=== PATIENT | female | born 2000 | race Caucasian/White ===

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

== ENCOUNTER → 2020-02-06 | Outpatient (CLI) | payer OTHER ==
[~2020-02-06] MED LIST: MAPA500T2 PO; NITR100C2 PO; PRENTAB9 PO
--- NOTE | 2020-02-06 15:11 | REP ---
REASON: anatomy. PRIORS: None. Multiple ultrasonographic images of the gravid uterus show a living intrauterine gestation in the cephalic presentation. Doppler interrogation of the heart shows a heart rate of 147 beats per minute. The placenta is anterior and not low lying. The subjective amniotic fluid volume is within normals limits. The cervix measures 4.2 cm in length and is closed. Evaluation of the maternal adnexal spaces show no abnormalities. BPD 5 cm = 21 weeks 0 days HC 19.4 cm = 19 weeks 4 days AC 16.3 cm = 21 weeks 3 days FL 3.7 cm = 21 weeks 6 days Estimated weight 436 grams, which is at the 42nd percentile for a 93-fzic-0-day gestational age. anatomical structures seen as unremarkable are as follows: Thalami, cavum septum pellucidum, cerebella, cisterna magna, cerebral ventricles, upper lip, ventricular outflow tracts, stomach, kidneys, spine, and upper and lower extremities. Structure suboptimally visualized as follows: Four-chamber heart, three vessel umbilical cord, urinary bladder, and cord insertion. IMPRESSION: Single living intrauterine gestation as described above with an estimated gestational age of 21 weeks 3 days via composite criteria and estimated date of delivery of 08/15/2019 by today's exam. No anomalies were detected, however, recommend a followup examination to better visualize those anatomical structures not well seen today as described above.
== END ==
LOC: M WHC 09:54
PROVIDERS: ATTEND Advanced Practice Midwife
DX: Z34.82 Encounter for supervision of other normal pregnancy, second trimester (principal); Z3A.21 21 weeks gestation of pregnancy

== ENCOUNTER → 2020-03-12 | Outpatient (REF) | payer OTHER ==
[2020-04-28 18:38] LABS: HEMATOCRIT 30.1 % (36.0-47.0); HEMOGLOBIN 9.6 g/dl (12.0-15.5); MEAN CORPUSCULAR HEMOGLOBIN 30.1 pg (27.0-33.0); MEAN CORPUSCULAR HGB CONC 31.9 g/dl (32.0-36.5); MEAN CORPUSCULAR VOLUME 94.4 fl (80.0-96.0); RED BLOOD COUNT 3.19 10^6/uL (4.00-5.40); WHITE BLOOD COUNT 9.1 10^3/uL (4.0-10.0)
[2020-04-28 18:39] LABS: PLATELET COUNT, AUTOMATED 196 10^3/uL (150-450)
== END ==
LOC: M SFHCWAGY 17:12
PROVIDERS: ATTEND Obstetrics & Gynecology
DX: Z34.00 Encounter for supervision of normal first pregnancy, unspecified trimester (principal)

== ENCOUNTER 2020-05-02 15:12 | Outpatient (CLI) | payer OTHER ==
[~2020-05-02] VITALS: Ht 167.6 cm; Wt 74.4 kg
== END 2020-05-02 17:50 | disposition home or self-care (01) ==
LOC: M LDO 15:12
PROVIDERS: ATTEND Advanced Practice Midwife
DX: O26.893 Other specified pregnancy related conditions, third trimester (principal); Z3A.34 34 weeks gestation of pregnancy
CPT/HCPCS: 59025; 81001; 87086; G0378; G0463

== ENCOUNTER → 2020-05-15 | Outpatient (REF) | payer OTHER | LOC: M SFHCWAGY 09:52 | PROVIDERS: ATTEND Obstetrics & Gynecology | DX: O99.343 Other mental disorders complicating pregnancy, third trimester (principal) | CPT/HCPCS: 87081; G0463 ==

== ENCOUNTER 2020-05-25 04:37 | Outpatient (CLI) | payer OTHER ==
[~2020-05-25] VITALS: Ht 165.1 cm; Wt 75.1 kg
[2020-05-25 04:56] VITALS: BP 109/58
[2020-05-25] MEDS ORDERED: LR 1,000 ML IV ONE (05:15)
[2020-05-25 06:53] VITALS: BP 108/55
--- NOTE | 2020-05-25 07:13 | IPNPDOC ---
Obstetrical Progress Note Date of Service May 25, 2020 Subjective 20yo at 37wks presents with pelvic pressure and abd pain. She reports active movement. No vaginal bleeding, LOF, dysuria or n/v/f/c. O: vss, AF Cat 1 tracing with ctx. Gen: well appearing, NAD cx: 1-2/50/-2 abd: soft, gravid, ntttp UA: c/w UTI A/P: 20yo with acute cystitis -macrobid 100mg BID -fever lori pain precautions -Labor precautions and FKCs Objective Vital Signs Date Time Temp Pulse Resp B/P (MAP) Pulse Ox O2 Delivery O2 Flow Rate FiO2 05/25/20 06:53 97.1 71 18 108/55 (72) Room Air Assessment Variability: Moderate Heart Rate Tracing: Category I Tocometer Contractions: Yes Sterile Vaginal Examination Dilation: 1cm Effacement (%): 50% Station: -2 Postion/Presentation: Cephalic presentation Assessment and Plan Age: 20 : 2 Livin Status: Reassuring Additional Comments UA consistent with UTI. Unable to gain IV access. Plan to give Macrobid 100mg BID IRENE SMALLS MD. May 25, 2020 07:13
[2020-05-25] MEDS ORDERED: NITROFURANTOIN (MACROBID) 100 MG CAP PO ONE (07:15)
[2020-05-25] MEDS ORDERED: NITR100C2 PO (07:41)
== END 2020-05-25 07:27 | disposition home or self-care (01) ==
LOC: M LDO 04:37
PROVIDERS: ATTEND Obstetrics & Gynecology
DX: O23.43 Unspecified infection of urinary tract in pregnancy, third trimester (principal); Z3A.37 37 weeks gestation of pregnancy
CPT/HCPCS: 59025; 81001; G0378; G0463

== ENCOUNTER 2020-05-30 09:48 | Outpatient (CLI) | payer OTHER ==
[~2020-05-30] VITALS: Ht 167.6 cm; Wt 76.9 kg
[~2020-05-30 09:48] MED LIST changes: -MAPA500T2 PO; -PRENTAB9 PO
[2020-05-30 10:08] VITALS: BP 113/63
[2020-05-30] MEDS ORDERED: PRENTAB9 PO (10:37)
[2020-05-30] MEDS ORDERED: MAPA500T2 PO (10:37)
[2020-05-30 11:54] VITALS: BP 118/69
[2020-05-30 13:43] VITALS: BP 120/71
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
== END 2020-05-30 17:50 | disposition home or self-care (01) ==
LOC: M LDO 09:48
PROVIDERS: ATTEND Advanced Practice Midwife
DX: O47.03 False labor before 37 completed weeks of gestation, third trimester (principal); Z87.891 Personal history of nicotine dependence; Z91.410 Personal history of adult physical and sexual abuse; Z3A.38 38 weeks gestation of pregnancy
CPT/HCPCS: 59025; G0378; G0463

== ENCOUNTER 2020-06-07 08:41 | Inpatient (IN) | payer OTHER ==
[~2020-06-07] VITALS: Ht 167.6 cm; Wt 76.6 kg
[2020-06-07] VITALS (39 sets, daily range): BP systolic 79–134; BP diastolic 43–85
[~2020-06-07 08:41] MED LIST changes: +MAPA500T2 PO; +PRENTAB9 PO
[2020-06-07] MEDS ORDERED: LACTATED RINGER'S 1000 ML IV STA (10:08)
[2020-06-07] MEDS ORDERED: OXYTOCIN DRIP 30 UNITS in IV 1 EA IV SCH (10:30)
[2020-06-07] MEDS: LR 1,000 ML IV SCH ×2 (10:43→16:58)
[2020-06-07 10:45] LABS: HEMATOCRIT 27.7 % (36.0-47.0); HEMOGLOBIN 8.2 g/dl (12.0-15.5); MEAN CORPUSCULAR HEMOGLOBIN 24.3 pg (27.0-33.0); MEAN CORPUSCULAR HGB CONC 29.6 g/dl (32.0-36.5); PLATELET COUNT, AUTOMATED 198 10^3/uL (150-450); RED BLOOD COUNT 3.38 10^6/uL (4.00-5.40); WHITE BLOOD COUNT 8.9 10^3/uL (4.0-10.0)
--- NOTE | 2020-06-07 11:26 | HPEPDOC ---
Obstetrical History & Physical General Date of Admission Jun 07, 2020 at 08:41 History of Present Illness 20yo at 39+1 weeks gestation. Presents for a scheduled, elective non- medically indicated induction of labor. She has no complaints this morning. She's feeling mild to moderately uncomfortable uterine contractions, but denies frequency/intensity, LOF, or VB. Reports regular, frequent movement. Chief Complaint: Induction of labor Age: 20 : 5 Term: 1 Pre-term: 0 Abortions: 3 Livin Care Care: Good Care Dating Final EDC: Jun 13, 2020 Final EDC by: LMP, 1st trimester (US) EGA at Admission: 39 (+1) Antepartum Course Diagnos(e)s 1. Anemia; taking Fe supplement 2. History of labor in previous , but delivered at term 3. Recurrent loss; SAB x 3 (RPL workup info not available) 4. Depression/anxiety; past suicide attempt. Formerly on Prozac. Followed by [facility] department 5. Former smoker Past Medical History Past Obstetrical History #1: Date of Delivery: Sep 24, 2015 Gestation: 40 Type of Delivery: Spontaneous Vaginal Del. Sex of : Female Complications: Yes ( labor; stopped with Procardia, delivered at term. anemia) Past Obstetrical History #2: Complications: No (SAB) Past Obstetrical History #3: Complications: No (SAB) Past Obstetrical History #4: Complications: No (SAB) DESK ASSISTANT History: No pertinent history Past Medical History Medical History Depression/Anxiety Anemia Surgical History: Denies/None Family History Significant Family History: Asthma, Cancer, Heart disease, Hypertension, Other (Psych) Social History Marital Status: Family situation: Spouse/partner home Psychosocial History: Anxiety, Gera SI and HI * Smoker: non-smoker Alcohol: Denies Drugs: denies Abuse Violence Screening Have you been hit/kicked/slapp: No Allergies Coded Allergies: tea tree (Verified Allergy, Mild, states bumps on scalp with shampoo with tea tree oil, 05/30/20) Medications Scheduled No.137/Iron/Folic Acd ( Vitamin Tablet) 1 Each Tablet, 1 TAB PO DAILY Physical Examination Physical Examination GENERAL: Alert and oriented times three. BREAST: . ABDOMEN: Gravid and non-tender to touch. FETUS: Is vertex (VTX) by sterile vaginal examination (SVE), fetus is vertex (VTX) by Jas. HEART RATE: Regular rate and rhythm. LUNGS: Clear to auscultation (CTA). EXTREMITIES: No edema. No clonus. Deep tendon reflexes (DTRs) + . Vital Signs/I&O Vital Signs Date Time Temp Pulse Resp B/P (MAP) Pulse Ox O2 Delivery O2 Flow Rate FiO2 06/07/20 10:19 97.4 65 18 129/63 (85) Laboratory Data 24H LABS Laboratory Tests 2 06/07/20 08:47: Serology Scanned Report Hepatitis B Testing 06/07/20 10:28: Nucleated Red Blood Cells % (auto) 0.0 CBC/BMP Laboratory Tests 06/07/20 10:28 Pertinent Laboratoy Data Blood Type: A- RBC Antibody Screen: Negative HIV: Negative Hepatitis B: Negative Hepatitis C: Negative Rapid Plasma Reagin: Nonreactive Rubella: Immune Chlamydia/Gonorrhea: Negative Group B Streptococcus: Negative Glucose Tolerance Test: 81 Anatomy Ultrasound Normal Anatomy: Yes Placenta Previa: No Vaginal Examination Dilation: 3 cm Effacement: 70% Station: -3 Cervical Consistency: Soft Cervical Position: Posterior Presentation: Cephalic presentation Assessment Heart Rate (FHR): 115 Variability: Moderate Accelerations: Positive Decelerations: None Tocometer Contractions: Yes Frequency: every 2-5 min. Duration: less than 60 seconds Strength: palpated as mild Multi-drug resistant Organism: No history of MDRO Assessment/Plan Assessment Barbara is a 20-year-old (G)5 para (P)1-0-3-1 at 39+1 weeks. Reassuring maternal and status. Plan Admit and orient. Information Systems Security Developer and consent. Labs and intravenous (IV) per unit protocol. Counseled on Pitocin and induction of labor (IOL). Anticipate [normal spontaneous delivery ()]. C-S as appropriate. MARA WALDRON DO Jun 07, 2020 11:26
[2020-06-07 13:51] LABS: AMPHETAMINES URINE REFLEX NEGATIVE (NEGATIVE); BARBITURATES URINE REFLEX NEGATIVE (NEGATIVE); BENZODIAZEPINES URINE REFLEX NEGATIVE (NEGATIVE); CANNABINOIDS URINE REFLEX NEGATIVE (NEGATIVE); COCAINE METABOLITE URINE REFLE NEGATIVE (NEGATIVE); METHADONE URINE REFLEX NEGATIVE (NEGATIVE); OPIATES URINE REFLEX NEGATIVE (NEGATIVE); PHENCYCLIDINE URINE REFLEX NEGATIVE (NEGATIVE)
--- NOTE | 2020-06-07 15:50 | IPNPDOC ---
Obstetrical Progress Note Date of Service Jun 07, 2020 Subjective Patient starting to feel more uncomfortable with contractions. No VB/LOF. Objective Vital Signs Date Time Temp Pulse Resp B/P (MAP) Pulse Ox O2 Delivery O2 Flow Rate FiO2 06/07/20 11:29 97.4 85 18 100/62 (75) Assessment Heart Rate (FHR): 125 Variability: Moderate Accelerations: Positive Decelerations: None Heart Rate Tracing: Category I Tocometer Contractions: Yes (Pit at 10mU/min) Frequency: every 2-5 min. Duration: less than 60 seconds Strength: palpated as moderate Sterile Vaginal Examination Dilation: 5 cm Effacement (%): 70% Station: -2 Cervical Consistency: Soft (Intact membranes) Cervical Position: Middle Postion/Presentation: Cephalic presentation Assessment and Plan Age: 20 : 5 Term: 1 Pre-term: 0 Abortions: 3 Livin Status: Reassuring Anticipate: Vaginal Delivery Additional Comments Continue with Pitocin Consider AROM if unchanged in 2-4 hours. MARA WALDRON DO Jun 07, 2020 15:50
[2020-06-07] MEDS ORDERED: FENTANYL 2MCG/ML ROPIVACAINE 0.2% IN 0.9% NACL 100ML IVBAG As Ordered ONE (19:49)
--- NOTE | 2020-06-07 19:49 | IPNPDOC ---
Obstetrical Progress Note Date of Service Jun 07, 2020 Subjective Patient requesting epidural. Continues to deny LOF/VB. Objective Vital Signs Date Time Temp Pulse Resp B/P (MAP) Pulse Ox O2 Delivery O2 Flow Rate FiO2 06/07/20 18:38 89 16 101/55 (70) 06/07/20 17:59 97.8 06/07/20 14:28 98 Room Air Assessment Heart Rate (FHR): 125 Variability: Moderate Accelerations: Positive Decelerations: None Heart Rate Tracing: Category I Tocometer Contractions: Yes (Pit at 16mU/min) Frequency: irregular Sterile Vaginal Examination Dilation: 5 cm Effacement (%): 70% Station: -2 Cervical Consistency: Soft Cervical Position: Anterior Postion/Presentation: Cephalic presentation Assessment and Plan Age: 20 : 5 Term: 1 Pre-term: 0 Abortions: 3 Livin Status: Reassuring Anticipate: Vaginal Delivery Additional Comments Anesthesia notified of epidural request. AROM after epidural. MARA WALDRON DO Jun 07, 2020 19:49
[2020-06-07] MEDS ORDERED: EPIDURAL/PCA KEYS XX PRN (21:08)
[2020-06-07] MEDS ORDERED: ePHEDrine SULFATE 25 MG/5 ML(5MG/ML) SYRINGE IV PRN (21:08)
[2020-06-07] MEDS ORDERED: diphenhydrAMINE 50MG/ML VIAL (J1200) IV PRN (21:08)
[2020-06-07] MEDS ORDERED: EPIDURAL COMMENT XX SCH (21:08)
[2020-06-07] MEDS ORDERED: FENTANYL/ROPIVACAINE/NACL BAG 100 ML EPIDURAL SCH (21:08)
[2020-06-07] MEDS ORDERED: REFRIGERATOR IV KEYS XX PRN (21:08)
[2020-06-07] MEDS ORDERED: LACTATED RINGER'S 1000 ML IV PRN (21:08)
[2020-06-07] MEDS ORDERED: ONDANSETRON 4MG/2ML VIAL IV PRN (21:08)
[2020-06-07] MEDS ORDERED: NALOXONE INJ 0.4MG/1ML VIAL (J2310 PER 1MG) IV PRN (21:08)
--- NOTE | 2020-06-07 21:35 | IPNPDOC ---
Obstetrical Progress Note Date of Service Jun 07, 2020 Subjective Patient comfortable with epidural. No SROM/VB. Objective Vital Signs Date Time Temp Pulse Resp B/P (MAP) Pulse Ox O2 Delivery O2 Flow Rate FiO2 06/07/20 20:39 97.4 86 16 117/67 (84) 06/07/20 14:28 98 Room Air Assessment Heart Rate (FHR): 120 Variability: Moderate Accelerations: Positive Decelerations: None Heart Rate Tracing: Category I Tocometer Contractions: Yes Frequency: every 2-5 min. (Pit at 16mU/min) Sterile Vaginal Examination Dilation: 5 cm Effacement (%): 70% Station: -2 Cervical Consistency: Soft Cervical Position: Anterior Postion/Presentation: Cephalic presentation (AROM , clear fluid.) Assessment and Plan Status: Reassuring Anticipate: Vaginal Delivery Additional Comments Continue Pitocin per protocol. MARA WALDRON DO Jun 07, 2020 21:35
[2020-06-08] VITALS (19 sets, daily range): BP systolic 99–132; BP diastolic 53–77
[2020-06-08] MEDS ORDERED: OXYTOCIN DRIP 30 UNITS in IV 1 EA IV SCH (02:06)
[2020-06-08] MEDS ORDERED: LR 1,000 ML IV SCH (02:06)
--- NOTE | 2020-06-08 02:13 | DNPDOC ---
[facility] Delivery Note Delivery Note DATE OF DELIVERY: 06/08/2020 TIME OF DELIVERY: 0151 Spontaneous vaginal delivery. PUNCHING MACHINE OPERATOR: Dr. Max Pruitt DO FACOG ANESTHESIA: Epidural. LACERATION: None ESTIMATED BLOOD LOSS: 200 mL. FINDINGS: 8 pound 7 ounce (3830g) male , Score, 7 and 9. DELIVERY SUMMARY: The active phase and second stage of labor progressed in normal fashion.. She received Pitocin augmentation throughout her labor course. The head delivered in the CLEOPATRA position, and restituted LOT. No nuchal cord was noted. The anterior shoulder delivered with gentle downward guidance and the remainder of the body delivered with ease. The baby was placed on the patient's chest. Delayed cord clamping occurred for approximately 1 minute. The cord was then doubly clamped and cut. IV Pitocin was bolused to actively manage the third stage of labor. The placenta delivered intact without any difficulty within 10 minutes of delivery. The uterine fundus was noted to be firm and 2 cm below the umbilicus. The cervix, vagina, vulva and perineum were inspected. No laceration was noted. Excellent hemostasis was noted. Sponge and instrument counts were correct per protocol. DO SUSAN Arauz JONATHAN R. DO Jun 08, 2020 02:13
[2020-06-08] MEDS ORDERED: IBUPROFEN 600MG TAB PO PRN (02:15)
[2020-06-08] MEDS ORDERED: ACETAMINOPHEN TAB 650MG DOSE (2X325MG) PO PRN (02:15)
[2020-06-08] MEDS ORDERED: ANUSOL HC CREAM 30GM TOP PRN (02:15)
[2020-06-08] MEDS ORDERED: ONDANSETRON 4MG/2ML VIAL IV PRN (02:15)
[2020-06-08] MEDS ORDERED: DOCUSATE SODIUM 100 MG CAP PO PRN (02:15)
[2020-06-08] MEDS ORDERED: ACETAMINOPHEN 500 MG TAB PO PRN (02:15)
[2020-06-08] MEDS ORDERED: DIBUCAINE 1% OINTMENT 30GM TOP PRN (02:15)
[2020-06-08] MEDS ORDERED: RHOGAM 300 MCG (1500 IU) INJ (J2790) IM SCH (02:15)
[2020-06-08] MEDS: IBUPROFEN 800 MG TAB PO PRN ×3 (04:07→20:22)
[2020-06-08] MEDS: PRENATAL VITAMINS CHEWABLE TABLET PO SCH (08:12)
[2020-06-09 06:26] VITALS: BP 115/72
[2020-06-09] MEDS ORDERED: SODIUM CHLORIDE NASAL 0.65% SPRAY BTL (OCEAN) PRN (08:00)
[2020-06-09] MEDS: PRENATAL VITAMINS CHEWABLE TABLET PO SCH (08:09)
== END 2020-06-09 14:05 | disposition home or self-care (01) | DRG 807 ==
LOC: M LDI 08:41 → M OBS 06-08 03:42
PROVIDERS: ADMIT Obstetrics & Gynecology; ATTEND Obstetrics & Gynecology
PROC: 10E0XZZ Delivery of Products of Conception, External Approach (ICD-10-PCS; principal; 2020-06-08)
DX: O99.02 Anemia complicating childbirth (principal); Z37.0 Single live birth; Z3A.39 39 weeks gestation of pregnancy; D64.9 Anemia, unspecified; Z87.51 Personal history of pre-term labor; Z87.891 Personal history of nicotine dependence

== ENCOUNTER 2020-09-11 03:45 | Emergency (ER) | payer OTHER ==
[~2020-09-11] VITALS: Ht 167.6 cm; Wt 79.8 kg
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
--- OUTSIDE RECORDS SUMMARY | 2020-09-11 03:52 | CCD ---
Author Author [facility] Organization [facility] Address Unknown Phone Unavailable Care Team Providers Care Lace Paper Machine Operator Name Role Phone Marilu Diaz Unavailable PROBLEMS Type Condition ICD9-CM Code [id number] Code Onset Dates Condition S tatus SNOMED Code Notes Problem Supervision of other normal Z34.80 Ac tive 329429108 Problem Anxiety F41.9 Active 81503022 Problem Nicotine addiction F17.200 Active 17272908 Problem Nicotine dependence, cigarettes, uncomplicated F17 .210 Active 101303073 Problem Depression F32.9 Active 29322218 Problem History of depression Z86.59 Active 117391001 Problem Encounter for medical examination to establish care Z00.00 Active 554803292 Problem Supervision of other normal Z34.80 Ac tive 146141604 ALLERGIES No Known Allergies ENCOUNTERS from 2000 to 2020-08-04 Encounter Location Date Provider Diagnosis [facility] [address] [place] [address] Jul, Marilu Emily Mastitis N61.0 IMMUNIZATIONS No Information SOCIAL HISTORY Tobacco Use: Social History Observation Description Date Details (start date - stop date) Never Smoker Sex Assigned At : Social History Observation Description Sex Assigned At Unknown Education: Question Answer Notes Level of Education: High School Audit Question Answer Notes Total Score: 0 Interpretation: Alcohol Education Mandaeism: Question Answer Notes Mandaeism No jewish beliefs that would impact health care. Drug and Alcohol Question Answer Notes Total Score: 0 Interpretation: No problems reported Tobacco Use: Question Answer Notes Are you a: never smoker REASON FOR REFERRAL No Information VITAL SIGNS No information MEDICATIONS Medication SIG (Take, Route, Frequency, Duration) Notes Start Da te End Date Status Ondansetron 4 MG 1 tablet on the tongue and a llow to dissolve Orally Once a day for 30 day(s) Oct, Not-Taking Dicloxacillin Sodium 500 MG 1 capsule 1 hour before or 2 hours after meals Orally every 6 hrs for 14 day(s) Jul, Active Iron 325 (65 Fe) MG 1 tablet Orally Once a day Not-Taking Miconazole 7 2 % 1 applicatorful at bedtime Vaginal Once a day f or 7 day(s) Sep, Not-Taking Vitamin 27-0.8 MG 1 tablet Orally Once a day Active PROCEDURES No Information RESULTS No Results REASON FOR VISIT No Information MEDICAL (GENERAL) HISTORY Type Description Date Medical [...] Treatment Notes Treatm ent Clinical Notes Jul, Mastitis (ICD-10 - N61.0) PLAN OF TREATMENT Medication Medication Name Sig Start Date Stop Date Dicloxacillin Sodium 500 MG 1 capsule 1 hour before or 2 hours after meals Orally every 6 hrs for 14 day(s) Jul, Next Appt Details Provider Name:Max Pruitt, 10:20:00 AM, [address] [place], [address], Insurance Providers Payer Name Payer Address Payer Phone Insured Name Patient Relati onship to Insured Coverage Start Date Coverage End Date [place] [id number] [phone] DELANO [place]
--- OUTSIDE RECORDS SUMMARY | 2020-09-11 03:53 | CCD ---
Author Author [facility] Organization [facility] Address Unknown Phone Unavailable Care Team Providers Care Lead Mason Tender Name Role Phone Tamela Pruitthan Unavailable PROBLEMS Type Condition ICD9-CM Code UWS85-CH Code Onset Dates Condition S tatus SNOMED Code Notes Problem Supervision of other normal Z34.80 Ac tive 145106422 Problem Anxiety F41.9 Active 50594147 Problem Nicotine addiction F17.200 Active 97386564 Problem Nicotine dependence, cigarettes, uncomplicated F17 .210 Active 224464199 Problem Depression F32.9 Active 13448265 Problem History of depression Z86.59 Active 901434463 Problem Encounter for medical examination to establish care Z00.00 Active 448475700 Problem Supervision of other normal Z34.80 Ac tive 583429255 ALLERGIES No Known Allergies ENCOUNTERS from 2000 to 2020-06-14 Encounter Location Date Provider Diagnosis [facility] [address] [place] [id number] May, Max Pruitt Other mental disorde rs complicating , third trimester O99.343 ; H/O: depression Z86.59 and 37 weeks gestation of Z3A.37 IMMUNIZATIONS No Information SOCIAL HISTORY Tobacco Use: Social History Observation Description Date Details (start date - stop date) Never Smoker Sex Assigned At : Social History Observation Description Sex Assigned At Unknown Education: Question Answer Notes Level of Education: High School Audit Question Answer Notes Total Score: 0 Interpretation: Alcohol Education Church: Question Answer Notes Church No hinduism beliefs that would impact health care. Drug and Alcohol Question Answer Notes Total Score: 0 Interpretation: No problems reported Tobacco Use: Question Answer Notes Are you a: never smoker REASON FOR REFERRAL No Information VITAL SIGNS Weight 168.6 lbs May, Height 66 in May, BMI 27.213 kg/m2 May, Blood pressure systolic 114 mm Hg May, Blood pressure diastolic 70 mm Hg May, MEDICATIONS Medication SIG (Take, Route, Frequency, Duration) [...] Information RESULTS No Results REASON FOR VISIT 1WK PN MEDICAL (GENERAL) HISTORY Type Description Date Medical [...] Notes Treatment Notes Treatm ent Clinical Notes May, Other mental disorders compl icating , third trimester (ICD-10 - O99.343) May, H/O: depression (ICD-10 - Z86.59) May, 37 weeks gestation of (ICD-10 - Z3A.37 ) PLAN OF TREATMENT Next Appt Details 1 Week Reason:follow-up Follow Up:1 Weekfollow-up Insurance Providers Payer Name Payer Address Payer Phone Insured Name Patient Relati onship to Insured Coverage Start Date Coverage End Date [place] [phone] [employer]
--- OUTSIDE RECORDS SUMMARY | 2020-09-11 03:53 | CCD ---
Author Author [facility] Organization [facility] Address Unknown Phone Unavailable Care Team Providers Care Field Cane Scaler Name Role Phone SHERRY TOMAS Unavailable Unavailable Angel Kingston MD Unavailable Unavailable Angel Kingston MD Unavailable Unavailable Angel Kingston MD Unavailable Unavailable Anegl Kingston MD Unavailable Unavailable Angel Kingston MD Unavailable Unavailable Angel Kingston MD Unavailable Unavailable Angel Kingston MD Unavailable Unavailable Angel Kingston MD Unavailable Unavailable Angel Kingston MD Unavailable Unavailable Angel Kingston MD Unavailable Unavailable Angel Kingston MD Unavailable Unavailable Angel Kingston MD Unavailable Unavailable Angel Kingston MD Unavailable Unavailable Angel Kingston MD Unavailable Unavailable Angel Kingston MD Unavailable Unavailable Angel Kingston MD Unavailable Unavailable Angel Kingston MD Unavailable Unavailable Angel Kingston MD Unavailable Unavailable Angel Kingston MD Unavailable Unavailable Angel Kingston MD Unavailable Unavailable Angel Kingston MD Unavailable Unavailable Angel Kingston MD Unavailable Unavailable Angel Kingston MD Unavailable Unavailable Angel Kingston MD Unavailable Unavailable Angel Kingston MD Unavailable Unavailable Angel Kingston MD Unavailable Unavailable Angel Kingston MD Unavailable Unavailable José Manuel Zapata LMSW Unavailable Unavailable Re-disclosure Warning The records that you are about to access may contain information from federally-assisted alcohol or drug abuse programs. If such information is present, then the following federally mandated warning applies: This information has been disclosed to you from records protected by federal confidentiality rules (42 CFR part 2). The federal rules prohibit you from making any further disclosure of this information unless further disclosure is expressly permitted by the written consent of the person to whom it pertains or as otherwise permitted by 42 CFR part 2. A general authorization for the release of medical or other information is NOT sufficient for this purpose. The Federal rules restrict any use of the information to criminally investigate or prosecute any alcohol or drug abuse patient.The records that you are about to access may contain highly sensitive health information, the redisclosure of which is protected by Article 27-F of the [facility] Public Health law. If you continue you may have access to information: Regarding HIV / AIDS; Provided by facilities licensed or operated by the [facility] Office of Mental Health; or Provided by the [facility] Office for People With Developmental Disabilities. If such information is present, then the following [facility] mandated warning applies: This information has been disclosed to you from confidential records which are protected by state law. State law prohibits you from making any further disclosure of this information without the specific written consent of the person to whom it pertains, or as otherwise permitted by law. Any unauthorized further disclosure in violation of state law may result in a fine or usp sentence or both. A general authorization for the release of medical or other information is NOT sufficient authorization for further disc losure. Encounters Encounter Providers Location Date Indications Data Source(s ) ( PP) [facility] [address] [place] [address] 08/06/2020 12:00:00 AM EST eCW1 ([facility]) Unknown [address] [facility] [address] 08/03/2020 12:00:00 AM EST eCW1 ([facility]) ( ESTOB) [facility] [address] [place] [address] 06/05/2020 12:00:00 AM EST eCW1 ([facility]) Unknown [address] [facility] [address] 05/30/2020 12:00:00 AM EST eCW1 ([facility]) ([facility]) [facility] [address] [place] [address] 05/29/2020 12:00:00 AM EST eCW1 ([facility]) (WC ESTOB) [facility] [address] [place] [address] 05/15/2020 12:00:00 AM EDT eCW1 ([facility]) (WC ESTOB) [facility] [address] [place] [address] 05/01/2020 12:00:00 AM EDT eCW1 ([facility]) Outpatient [address] [facility] [address] 04/27/2020 12:00:00 AM EDT eCW1 ([facility]) [facility] [address] [facility] [address] 02/07/2020 12:00:00 AM EDT eCW1 ([facility]) (WC ESTOB) [facility] [address] [place] [address] 01/31/2020 12:00:00 AM EDT eCW1 ([facility]) (WC ESTOB) [facility] [address] [place] [address] 01/13/2020 12:00:00 AM EDT eCW1 ([facility]) [facility] [address] [place] [address] 12/08/2019 12:00:00 AM EDT eCW1 ([facility]) Outpatient 11/24/2019 02:57:00 PM EDT [facility] Outpatient 11/24/2019 02:54:00 PM EDT [facility] [address] [place] [address] 11/10/2019 12:00:00 AM EDT eCW1 ([facility]) [facility] [address] [place] [address] 10/27/2019 12:00:00 AM EDT eCW1 ([facility]) [facility] [address] [place] [address] 10/27/2019 12:00:00 AM EDT eCW1 ([facility]) Outpatient Attender: Sharmaine Zapata LMSW 02:59:00 PM EDT - 10/17/2019 02:59:00 PM EDT [facility] Outpatient Attender: Sharmaine Zapata [facility] Attender: SHERRY OTMASReferrer: Gilmer Kingston MD 10/17/2019 02:53:00 PM EDT - 10/17/2019 02:53:00 PM EDT [facility] [address] [place] [address] 10/11/2019 12:00:00 AM EDT eCW1 ([facility]) Medications Medication Brand Name Start Date Product Form Dose Route Admi nistrative Instructions Pharmacy Instructions Status Indications Reaction Description Data Source(s) Dicloxacillin 500 MG Oral Capsule Dicloxacillin Sodium 500 MG Dicloxacillin Sodium 500 MG 08/03/2020 12:00:00 AM EST acti ve Dicloxacillin Sodium 500 MG eCW1 ([facility]) Dicloxacillin 500 MG Oral Capsule Dicloxacillin Sodium 500 MG Dicloxacillin Sodium 500 MG 08/03/2020 12:00:00 AM EST acti ve Dicloxacillin Sodium 500 MG eCW1 ([facility]) Ondansetron 4 MG Disintegrating Oral Tablet Ondansetron 4 MG 10/27/2019 12:00:00 AM EDT 1.0 {tablet_on_the_tongue_and_allow_to_dissolve} suspended Ondansetron 4 MG eCW1 ([facility]) Ondansetron 4 MG Disintegrating Oral Tablet Ondansetron 4 MG 10/27/2019 12:00:00 AM EDT active 1 tablet on the t ongue and allow to dissolve eCW1 ([facility]) Ondansetron 4 MG Disintegrating Oral Tablet Ondansetron 4 MG 10/27/2019 12:00:00 AM EDT 1.0 {tablet_on_the_tongue_and_allow_to_dissolve} suspended Ondansetron 4 MG eCW1 ([facility]) Ondansetron 4 MG Disintegrating Oral Tablet Ondansetron 4 MG 10/27/2019 12:00:00 AM EDT active 1 tablet on the t ongue and allow to dissolve eCW1 ([facility]) Ondansetron 4 MG Disintegrating Oral Tablet Ondansetron 4 MG 10/27/2019 12:00:00 AM EDT 1.0 {tablet_on_the_tongue_and_allow_to_dissolve} suspended Ondansetron 4 MG eCW1 ([facility]) Ondansetron 4 MG Disintegrating Oral Tablet Ondansetron 4 MG 10/27/2019 12:00:00 AM EDT 1.0 {tablet_on_the_tongue_and_allow_to_dissolve} suspended Ondansetron 4 MG eCW1 ([facility]) Ondansetron 4 MG Disintegrating Oral Tablet Ondansetron 4 MG 10/27/2019 12:00:00 AM EDT 1.0 {tablet_on_the_tongue_and_allow_to_dissolve} suspended Ondansetron 4 MG eCW1 ([facility]) Ondansetron 4 MG Disintegrating Oral Tablet Ondansetron 4 MG 10/27/2019 12:00:00 AM EDT 1.0 {tablet_on_the_tongue_and_allow_to_dissolve} suspended Ondansetron 4 MG eCW1 ([facility]) Ondansetron 4 MG Disintegrating Oral Tablet Ondansetron 4 MG 10/27/2019 12:00:00 AM EDT 1.0 {tablet_on_the_tongue_and_allow_to_dissolve} suspended Ondansetron 4 MG eCW1 ([facility]) Ondansetron 4 MG Disintegrating Oral Tablet Ondansetron 4 MG 10/27/2019 12:00:00 AM EDT 1.0 {tablet_on_the_tongue_and_allow_to_dissolve} suspended Ondansetron 4 MG eCW1 ([facility]) Ondansetron 4 MG Disintegrating Oral Tablet Ondansetron 4 MG 10/27/2019 12:00:00 AM EDT 1.0 {tablet_on_the_tongue_and_allow_to_dissolve} suspended Ondansetron 4 MG eCW1 ([facility]) Ondansetron 4 MG Disintegrating Oral Tablet Ondansetron 4 MG 10/27/2019 12:00:00 AM EDT 1.0 {tablet_on_the_tongue_and_allow_to_dissolve} suspended Ondansetron 4 MG eCW1 ([facility]) Miconazole Nitrate 20 MG/ML Vaginal Cream Miconazole 7 2 % M iconazole 7 2 % 10/11/2019 12:00:00 AM EDT suspended Miconazole 7 2 % eCW1 ([facility]) Miconazole Nitrate 20 MG/ML Vaginal Cream Miconazole 7 2 % M iconazole 7 2 % 10/11/2019 12:00:00 AM EDT suspended Miconazole 7 2 % eCW1 ([facility]) Miconazole Nitrate 20 MG/ML Vaginal Cream Miconazole 7 2 % M iconazole 7 2 % 10/11/2019 12:00:00 AM EDT suspended Miconazole 7 2 % eCW1 ([facility]) Miconazole Nitrate 20 MG/ML Vaginal Cream Miconazole 7 2 % M iconazole 7 2 % 10/11/2019 12:00:00 AM EDT suspended Miconazole 7 2 % eCW1 ([facility]) Miconazole Nitrate 20 MG/ML Vaginal Cream Miconazole 7 2 % M iconazole 7 2 % 10/11/2019 12:00:00 AM EDT suspended Miconazole 7 2 % eCW1 ([facility]) Miconazole Nitrate 20 MG/ML Vaginal Cream Miconazole 7 2 % M iconazole 7 2 % 10/11/2019 12:00:00 AM EDT suspended Miconazole 7 2 % eCW1 ([facility]) Miconazole Nitrate 20 MG/ML Vaginal Cream Miconazole 7 2 % M iconazole 7 2 % 10/11/2019 12:00:00 AM EDT suspended 1 applicatorful at bedtime eCW1 ([facility]) Miconazole Nitrate 20 MG/ML Vaginal Cream Miconazole 7 2 % M iconazole 7 2 % 10/11/2019 12:00:00 AM EDT suspended Miconazole 7 2 % eCW1 ([facility]) Miconazole Nitrate 20 MG/ML Vaginal Cream Miconazole 7 2 % M iconazole 7 2 % 10/11/2019 12:00:00 AM EDT suspended Miconazole 7 2 % eCW1 ([facility]) Miconazole Nitrate 20 MG/ML Vaginal Cream Miconazole 7 2 % M iconazole 7 2 % 10/11/2019 12:00:00 AM EDT suspended Miconazole 7 2 % eCW1 ([facility]) Miconazole Nitrate 20 MG/ML Vaginal Cream Miconazole 7 2 % M iconazole 7 2 % 10/11/2019 12:00:00 AM EDT suspended Miconazole 7 2 % eCW1 ([facility]) Insurance Providers Payer name Policy type / Coverage type Policy ID Covered green party ID Covered green party's relationship to jolly Policy Jolly Plan Information [facility] [id number] [facility] [id number] SELF PAY O UNAVAILABLE S UNAVAILA BLE [facility] [place] [id number] [phone] [id number] Problems, Conditions, and Diagnoses Code Display Name Description Problem Type Effective Dates Data Source(s) F17.210 Tobacco user Nicotine dependence, cigarettes, uncompli cated Problem 06/05/2020 12:00:00 AM EST eCW1 ([facility]) F17.200 [id number] Nicotine addiction Problem 05/15/2020 12:00: 00 AM EDT eCW1 ([facility]) Z34.80 care Supervision of other normal P roblem 05/14/2020 12:00:00 AM EDT eCW1 ([facility]) Z00.00 [id number] Encounter for medical examination to danisha barreraish care Problem 04/27/2020 12:00:00 AM EDT eCW1 ([facility]) Z86.59 [id number] History of depression Problem 04/27/2020 12: 00:00 AM EDT eCW1 ([facility]) F32.9 Depression Depression Problem 11/10/2019 12:00:00 AM ED T eCW1 ([facility]) F41.9 Anxiety Anxiety Problem 11/10/2019 12:00:00 AM ED T eCW1 ([facility]) F32.9 Depression Depression Problem 11/10/2019 12:00:00 AM ED T eCW1 ([facility]) F41.9 Anxiety Anxiety Problem 11/10/2019 12:00:00 AM ED T eCW1 ([facility]) Z34.80 care Supervision of other normal P roblem 10/11/2019 12:00:00 AM EDT eCW1 ([facility]) Z34.80 care Supervision of other normal P roblem 10/11/2019 12:00:00 AM EDT eCW1 ([facility]) F339 Major depressive disorder, recurrent, un specified Major depressive disorder, recurrent, unspecified Diagnosis 10/17/2019 02:53:00 PM EDT [facility] Surgeries/Procedures Procedure Description Date Indications Data Source(s) SUBSEQUENT CARE VISIT 12/08/2019 12:00:00 AM EDT eCW1 ([facility]) Psychiatric Diagnostic Evaluation 10/17/2019 12:00:00 AM EDT MEDENT ([facility]) Results ID Date Data Source GROUP B STREP CULTURE 05/17/2020 11:09:22 AM EDT eCW1 ([facility]) Name Value Range Interpretation Code Description Data Venessa rce(s) Supporting Document(s) GROUP B STREP CULTURE eCW1 ([facility]) ID Date Data Source WWBC OBS COMPLETE US 02/08/2020 10:19:07 AM EDT eCW1 ([facility]) Name Value Range Interpretation Code Description Data Venessa rce(s) Supporting Document(s) WWBC OBS COMPLETE US eCW1 ([facility]) Procedure Social History Code Duration Value Status Description Data Source(s ) Smoking 08/06/2020 12:00:00 AM EST Never Smoker completed Never S moker eCW1 ([facility]) Smoking 05/30/2020 12:00:00 AM EST Never Smoker completed Never S moker eCW1 ([facility]) Smoking 05/30/2020 12:00:00 AM EST Never Smoker completed Never S moker eCW1 ([facility]) Smoking 05/30/2020 12:00:00 AM EST Never Smoker completed Never S moker eCW1 ([facility]) Smoking 05/30/2020 12:00:00 AM EST Never Smoker completed Never S moker eCW1 ([facility]) Smoking 05/30/2020 12:00:00 AM EST Never Smoker completed Never S moker eCW1 ([facility]) Smoking 05/25/2020 12:00:00 AM EDT Never Smoker completed Never S moker eCW1 ([facility]) Smoking 05/15/2020 12:00:00 AM EDT Never Smoker completed Never S moker eCW1 ([facility]) Smoking 05/01/2020 12:00:00 AM EDT Never Smoker completed Never S moker eCW1 ([facility]) Smoking 01/31/2020 12:00:00 AM EDT Current Smoker completed Curre nt Smoker eCW1 ([facility]) Vital Signs ID Date Data Source UNK Name Value Range Interpretation Code Description Data Source(s) Diastolic blood pressure 60 mm[Hg] 60 mm[Hg] W1 ([facility]) Systolic blood pressure 122 mm[Hg] 122 mm[Hg] e CW1 ([facility]) Body mass index (BMI) [Ratio] 27.27 kg/m2 27.27 kg/m2 W1 ([facility]) Body height 66 [in_i] 66 [in_i] W1 ([facility]) Body weight 169 [lb_av] 169 [lb_av] W1 ([facility]) Diastolic blood pressure 68 mm[Hg] 68 mm[Hg] W1 ([facility]) Systolic blood pressure 126 mm[Hg] 126 mm[Hg] e CW1 ([facility]) Body mass index (BMI) [Ratio] 27.116 kg/m2 27.1 16 kg/m2 [facility] ([facility]) Body height 66 [in_i] 66 [in_i] eCW1 ([facility]) Body weight 168 [lb_av] 168 [lb_av] eCW1 ([facility]) Diastolic blood pressure 70 mm[Hg] 70 mm[Hg] eCW1 ([facility]) Systolic blood pressure 114 mm[Hg] 114 mm[Hg] e CW1 ([facility]) Body mass index (BMI) [Ratio] 27.213 kg/m2 27.2 13 kg/m2 eCW1 ([facility]) Body height 66 [in_i] 66 [in_i] eCW1 ([facility]) Body weight 168.6 [lb_av] 168.6 [lb_av] eCW1 ([facility]) Diastolic blood pressure 80 mm[Hg] 80 mm[Hg] eCW1 ([facility]) Systolic blood pressure 100 mm[Hg] 100 mm[Hg] e CW1 ([facility]) Body mass index (BMI) [Ratio] 26.567 kg/m2 26.5 67 kg/m2 eCW1 ([facility]) Body height 66 [in_i] 66 [in_i] eCW1 ([facility]) Body weight 74.66 kg 74.66 kg eCW1 ([facility]) Body weight 164.6 [lb_av] 164.6 [lb_av] eCW1 ([facility]) Diastolic blood pressure 70 mm[Hg] 70 mm[Hg] eCW1 ([facility]) Systolic blood pressure 122 mm[Hg] 122 mm[Hg] e CW1 ([facility]) Body mass index (BMI) [Ratio] 26.47 kg/m2 26.47 kg/m2 eCW1 ([facility]) Body height 66 [in_i] 66 [in_i] eCW1 ([facility]) Body weight 164 [lb_av] 164 [lb_av] eCW1 ([facility]) Diastolic blood pressure 53 mm[Hg] 53 mm[Hg] eCW1 ([facility]) Systolic blood pressure 113 mm[Hg] 113 mm[Hg] e CW1 ([facility]) Body temperature 98.6 [degF] 98.6 [degF] eCW1 ( [facility]) Respiratory rate 17 /min 17 /min eCW1 ([facility]) Heart rate 91 /min 91 /min eCW1 ([facility]) Body mass index (BMI) [Ratio] 26.63 kg/m2 26.63 kg/m2 eCW1 ([facility]) Body height 66 [in_i] 66 [in_i] eCW1 ([facility]) Body weight 165 [lb_av] 165 [lb_av] eCW1 ([facility]) Diastolic blood pressure 80 mm[Hg] 80 mm[Hg] eCW1 ([facility]) Systolic blood pressure 136 mm[Hg] 136 mm[Hg] e CW1 ([facility]) Body mass index (BMI) [Ratio] 23.34 kg/m2 23.34 kg/m2 eCW1 ([facility]) Body height 66 [in_i] 66 [in_i] eCW1 ([facility]) Body weight 144.6 [lb_av] 144.6 [lb_av] eCW1 ([facility]) Diastolic blood pressure 68 mm[Hg] 68 mm[Hg] eCW1 ([facility]) Systolic blood pressure 122 mm[Hg] 122 mm[Hg] e CW1 ([facility]) Body mass index (BMI) [Ratio] 22.758 kg/m2 22.7 58 kg/m2 eCW1 ([facility]) Body height 66 [in_i] 66 [in_i] eCW1 ([facility]) Body weight 141 [lb_av] 141 [lb_av] eCW1 ([facility]) Diastolic blood pressure 80 mm[Hg] 80 mm[Hg] eCW1 ([facility]) Systolic blood pressure 112 mm[Hg] 112 mm[Hg] e CW1 ([facility]) Body mass index (BMI) [Ratio] 22.274 kg/m2 22.2 74 kg/m2 eCW1 ([facility]) Body height 66 [in_us] 66 [in_us] eCW1 ([facility]) Body weight Measured 138 [lb_av] 138 [lb_av] eC W1 ([facility]) Patient Treatment Plan of Care Planned Activity Planned Date Details Description Data Source (s) Dicloxacillin 500 MG Oral Capsule 08/03/2020 12:00:00 AM EST eCW1 ([facility]) Ondansetron 4 MG Disintegrating Oral Tablet 10/27/2019 12:00:00 AM EDT eCW1 ([facility])
--- OUTSIDE RECORDS SUMMARY | 2020-09-11 03:53 | CCD ---
Author Author [facility] Organization [facility] Address Unknown Phone Unavailable Care Team Providers Care Sharepoint Consultant Name Role Phone Tamela Pruitthan Unavailable PROBLEMS Type Condition ICD9-CM Code [id number] Code Onset Dates Condition S tatus SNOMED Code Notes Problem Supervision of other normal Z34.80 Ac tive 542562409 Problem Anxiety F41.9 Active 74562280 Problem Nicotine addiction F17.200 Active 05512897 Problem Nicotine dependence, cigarettes, uncomplicated F17 .210 Active 248641914 Problem Depression F32.9 Active 56428913 Problem History of depression Z86.59 Active 399792228 Problem Encounter for medical examination to establish care Z00.00 Active 249631981 Problem Supervision of other normal Z34.80 Ac tive [id number] ALLERGIES No Known Allergies ENCOUNTERS from 2000 to 2020-06-18 Encounter Location Date Provider Diagnosis [facility] [place] [address] May, Max Pruitt Other mental disorde rs complicating , third trimester O99.343 ; Depression F32.9 and 38 weeks gestation of Z3A.38 IMMUNIZATIONS No Information SOCIAL HISTORY Tobacco Use: Social History Observation Description Date Details (start date - stop date) Never Smoker Sex Assigned At : Social History Observation Description Sex Assigned At Unknown Education: Question Answer Notes Level of Education: High School Audit Question Answer Notes Total Score: 0 Interpretation: Alcohol Education Taoism: Question Answer Notes Taoism No hinduism beliefs that would impact health care. Drug and Alcohol Question Answer Notes Total Score: 0 Interpretation: No problems reported Tobacco Use: Question Answer Notes Are you a: never smoker REASON FOR REFERRAL No Information VITAL SIGNS Weight 168 lbs May, Height 66 in May, BMI 27.116 kg/m2 May, Blood pressure systolic 126 mm Hg May, Blood pressure diastolic 68 mm Hg May, MEDICATIONS Medication SIG (Take, [...] Information RESULTS No Results REASON FOR VISIT 1wk pn MEDICAL (GENERAL) HISTORY Type Description Date Medical [...] , third trimester (ICD-10 - O99.343) May, Depression (ICD-10 - F32.9) May, 38 weeks gestation of (ICD-10 - Z3A.38 ) PLAN OF TREATMENT Next Appt Details 1 Week Reason: Insurance Providers Payer Name Payer Address Payer Phone Insured Name Patient Relati onship to Insured Coverage Start Date Coverage End Date [place] [phone] [phone] [place]
[2020-09-11 04:37] LABS: BASO % 0.3 % (0.0-1.0); EOS # 0.1 10^3/uL (0.0-0.5); EOS % 1.7 % (0.0-3.0); HEMATOCRIT 36.4 % (36.0-47.0); HEMOGLOBIN 11.8 g/dl (12.0-15.5); LYMPH # 1.6 10^3/uL (1.5-5.0); LYMPH % 21.7 % (24.0-44.0); MEAN CORPUSCULAR HEMOGLOBIN 26.9 pg (27.0-33.0); MEAN CORPUSCULAR HGB CONC 32.4 g/dl (32.0-36.5); MEAN CORPUSCULAR VOLUME 83.1 fl (80.0-96.0); MONO # 0.5 10^3/uL (0.0-0.8); MONO % 7.4 % (0.0-8.0); NEUTROPHILS % 68.6 % (36.0-66.0); PLATELET COUNT, AUTOMATED 257 10^3/uL (150-450); RED BLOOD COUNT 4.38 10^6/uL (4.00-5.40); WHITE BLOOD COUNT 7.3 10^3/uL (4.0-10.0)
[2020-09-11] MEDS ORDERED: ONDANSETRON 4MG/2ML VIAL IV ONE (05:00)
[2020-09-11] MEDS ORDERED: KETOROLAC 30 MG/ML 1ML VIAL IV ONE (05:00)
--- OUTSIDE RECORDS SUMMARY | 2020-09-11 05:00 | CCD ---
Author Author [facility] Organization [facility] Address Unknown Phone Unavailable Care Team Providers Care Fermenter Operator Name Role Phone SHERRY TOMAS Unavailable Unavailable [...] Unavailable Unavailable Angel Kingston MD Unavailable Unavailable Angle Kingston MD Unavailable Unavailable Angel Kingston MD [...] is protected by Article 27-F of the [facility] Public Health law. If you continue you may have access to information: Regarding HIV / AIDS; Provided by facilities licensed or operated by the [facility] Office of Mental Health; or Provided by the [facility] Office for People With Developmental Disabilities. If such information is present, then the following [facility] mandated warning applies: This information has [...] law may result in a fine or halfway sentence or both. A general authorization for the release of medical or other information is NOT sufficient authorization for further disc losure. Encounters Encounter Providers Location Date Indications Data Source(s ) ( PP) [facility] [address] [place] [address] 08/06/2020 12:00:00 AM EST eCW1 ([facility]) Unknown [address] [facility] [address] 08/03/2020 12:00:00 AM EST eCW1 ([facility]) ( ESTOB) [facility] [address] [place] [address] 06/05/2020 12:00:00 AM EST eCW1 ([facility]) [place] [address] [facility] [address] 05/30/2020 12:00:00 AM EST eCW1 ([facility]) (WC ESTOB) [facility] [address] [place] [address] 05/29/2020 12:00:00 AM EST eCW1 ([facility]) (WC ESTOB) [facility] [address] [place] [address] 05/15/2020 12:00:00 AM EDT eCW1 ([facility]) (WC ESTOB) [facility] [address] [place] [address] 05/01/2020 12:00:00 AM EDT eCW1 ([facility]) Outpatient [address] [facility] [address] 04/27/2020 12:00:00 AM EDT eCW1 ([facility]) [facility] [address] [facility] [address] 02/07/2020 12:00:00 AM EDT eCW1 ([facility]) (WC ESTOB) [facility] [address] [place] [address] 01/31/2020 12:00:00 AM EDT eCW1 ([facility]) (WC ESTOB) [facility] [address] [place] [address] 01/13/2020 12:00:00 AM EDT eCW1 ([facility]) [facility] [address] [place] [address] 12/08/2019 12:00:00 AM EDT eCW1 ([facility]) Outpatient 11/24/2019 02:57:00 PM EDT [facility] Outpatient 11/24/2019 02:54:00 PM EDT [facility] [address] [place] [address] 11/10/2019 12:00:00 AM EDT eCW1 ([facility]) [facility] [address] [place] [address] 10/27/2019 12:00:00 AM EDT eCW1 ([facility]) [facility] [address] [place] [address] 10/27/2019 12:00:00 AM EDT eCW1 ([facility]) Outpatient Attender: Sharmaine Zapata LMSW 02:59:00 PM EDT - 10/17/2019 02:59:00 PM EDT [facility] Outpatient Attender: Sharmaine Zapata [facility] Attender: SHERRY TOMASReferrer: Gilmer Kingston MD 10/17/2019 02:53:00 PM EDT - 10/17/2019 02:53:00 PM EDT [facility] [address] [place] [address] 10/11/2019 12:00:00 AM EDT eCW1 ([facility]) Medications Medication Brand Name Start Date Product Form Dose Route Admi nistrative Instructions Pharmacy Instructions Status Indications Reaction Description Data Source(s) Dicloxacillin 500 MG Oral Capsule Dicloxacillin Sodium 500 MG Dicloxacillin Sodium 500 MG 08/03/2020 12:00:00 AM EST acti ve Dicloxacillin Sodium 500 MG eCW1 ([facility]) Dicloxacillin 500 MG Oral Capsule Dicloxacillin Sodium 500 MG Dicloxacillin Sodium 500 MG 08/03/2020 12:00:00 AM EST acti ve Dicloxacillin Sodium 500 MG eCW1 ([facility]) Ondansetron 4 MG Disintegrating Oral Tablet Ondansetron 4 MG 10/27/2019 12:00:00 AM EDT 1.0 {tablet_on_the_tongue_and_allow_to_dissolve} suspended Ondansetron 4 MG eCW1 ([facility]) Ondansetron 4 MG Disintegrating Oral Tablet Ondansetron 4 MG 10/27/2019 12:00:00 AM EDT active 1 tablet on the t ongue and allow to dissolve eCW1 ([facility]) Ondansetron 4 MG Disintegrating Oral Tablet Ondansetron 4 MG 10/27/2019 12:00:00 AM EDT 1.0 {tablet_on_the_tongue_and_allow_to_dissolve} suspended Ondansetron 4 MG eCW1 ([facility]) Ondansetron 4 MG Disintegrating Oral Tablet Ondansetron 4 MG 10/27/2019 12:00:00 AM EDT active 1 tablet on the t ongue and allow to dissolve eCW1 ([facility]) Ondansetron 4 MG Disintegrating Oral Tablet Ondansetron 4 MG 10/27/2019 12:00:00 AM EDT 1.0 {tablet_on_the_tongue_and_allow_to_dissolve} suspended Ondansetron 4 MG eCW1 ([facility]) Ondansetron 4 MG Disintegrating Oral Tablet Ondansetron 4 MG 10/27/2019 12:00:00 AM EDT 1.0 {tablet_on_the_tongue_and_allow_to_dissolve} suspended Ondansetron 4 MG eCW1 ([facility]) Ondansetron 4 MG Disintegrating Oral Tablet Ondansetron 4 MG 10/27/2019 12:00:00 AM EDT 1.0 {tablet_on_the_tongue_and_allow_to_dissolve} suspended Ondansetron 4 MG eCW1 ([facility]) Ondansetron 4 MG Disintegrating Oral Tablet Ondansetron 4 MG 10/27/2019 12:00:00 AM EDT 1.0 {tablet_on_the_tongue_and_allow_to_dissolve} suspended Ondansetron 4 MG eCW1 ([facility]) Ondansetron 4 MG Disintegrating Oral Tablet Ondansetron 4 MG 10/27/2019 12:00:00 AM EDT 1.0 {tablet_on_the_tongue_and_allow_to_dissolve} suspended Ondansetron 4 MG eCW1 ([facility]) Ondansetron 4 MG Disintegrating Oral Tablet Ondansetron 4 MG 10/27/2019 12:00:00 AM EDT 1.0 {tablet_on_the_tongue_and_allow_to_dissolve} suspended Ondansetron 4 MG eCW1 ([facility]) Ondansetron 4 MG Disintegrating Oral Tablet Ondansetron 4 MG 10/27/2019 12:00:00 AM EDT 1.0 {tablet_on_the_tongue_and_allow_to_dissolve} suspended Ondansetron 4 MG eCW1 ([facility]) Ondansetron 4 MG Disintegrating Oral Tablet Ondansetron 4 MG 10/27/2019 12:00:00 AM EDT 1.0 {tablet_on_the_tongue_and_allow_to_dissolve} suspended Ondansetron 4 MG eCW1 ([facility]) Miconazole Nitrate 20 MG/ML Vaginal Cream Miconazole 7 2 % M iconazole 7 2 % 10/11/2019 12:00:00 AM EDT suspended Miconazole 7 2 % eCW1 ([facility]) Miconazole Nitrate 20 MG/ML Vaginal Cream Miconazole 7 2 % M iconazole 7 2 % 10/11/2019 12:00:00 AM EDT suspended Miconazole 7 2 % eCW1 ([facility]) Miconazole Nitrate 20 MG/ML Vaginal Cream Miconazole 7 2 % M iconazole 7 2 % 10/11/2019 12:00:00 AM EDT suspended Miconazole 7 2 % eCW1 ([facility]) Miconazole Nitrate 20 MG/ML Vaginal Cream Miconazole 7 2 % M iconazole 7 2 % 10/11/2019 12:00:00 AM EDT suspended Miconazole 7 2 % eCW1 ([facility]) Miconazole Nitrate 20 MG/ML Vaginal Cream Miconazole 7 2 % M iconazole 7 2 % 10/11/2019 12:00:00 AM EDT suspended Miconazole 7 2 % eCW1 ([facility]) Miconazole Nitrate 20 MG/ML Vaginal Cream Miconazole 7 2 % M iconazole 7 2 % 10/11/2019 12:00:00 AM EDT suspended Miconazole 7 2 % eCW1 ([facility]) Miconazole Nitrate 20 MG/ML Vaginal Cream Miconazole 7 2 % M iconazole 7 2 % 10/11/2019 12:00:00 AM EDT suspended 1 applicatorful at bedtime eCW1 ([facility]) Miconazole Nitrate 20 MG/ML Vaginal Cream Miconazole 7 2 % M iconazole 7 2 % 10/11/2019 12:00:00 AM EDT suspended Miconazole 7 2 % eCW1 ([facility]) Miconazole Nitrate 20 MG/ML Vaginal Cream Miconazole 7 2 % M iconazole 7 2 % 10/11/2019 12:00:00 AM EDT suspended Miconazole 7 2 % eCW1 ([facility]) Miconazole Nitrate 20 MG/ML Vaginal Cream Miconazole 7 2 % M iconazole 7 2 % 10/11/2019 12:00:00 AM EDT suspended Miconazole 7 2 % eCW1 ([facility]) Miconazole Nitrate 20 MG/ML Vaginal Cream Miconazole 7 2 % M iconazole 7 2 % 10/11/2019 12:00:00 AM EDT suspended Miconazole 7 2 % eCW1 ([facility]) Insurance Providers Payer name Policy type / Coverage type Policy ID Covered alliance party ID Covered alliance party's relationship to jolly Policy Jolly Plan Information [facility] [id number] SP [id number] SELF PAY O UNAVAILABLE S UNAVAILA BLE [facility] [place] [id number] Problems, Conditions, and Diagnoses Code Display Name Description Problem Type Effective Dates Data Source(s) F17.210 Tobacco user Nicotine dependence, cigarettes, uncompli cated Problem 06/05/2020 12:00:00 AM EST eCW1 ([facility]) F17.200 [id number] Nicotine addiction Problem 05/15/2020 12:00: 00 AM EDT eCW1 ([facility]) Z34.80 care Supervision of other normal P roblem 05/14/2020 12:00:00 AM EDT eCW1 ([facility]) Z00.00 [id number] Encounter for medical examination to esta hollyish care Problem 04/27/2020 12:00:00 AM EDT eCW1 ([facility]) Z86.59 [id number] History of depression Problem 04/27/2020 12: 00:00 AM EDT eCW1 ([facility]) F32.9 Depression Depression Problem 11/10/2019 12:00:00 AM ED T eCW1 ([facility]) F41.9 Anxiety Anxiety Problem 11/10/2019 12:00:00 AM ED T eCW1 ([facility]) F32.9 Depression Depression Problem 11/10/2019 12:00:00 AM ED T eCW1 ([facility]) F41.9 Anxiety Anxiety Problem 11/10/2019 12:00:00 AM ED T eCW1 ([facility]) Z34.80 care Supervision of other normal P roblem 10/11/2019 12:00:00 AM EDT eCW1 ([facility]) Z34.80 care Supervision of other normal P roblem 10/11/2019 12:00:00 AM EDT eCW1 ([facility]) F339 Major depressive disorder, recurrent, un specified Major depressive disorder, recurrent, unspecified Diagnosis 10/17/2019 02:53:00 PM EDT [facility] Surgeries/Procedures Procedure Description Date Indications Data Source(s) SUBSEQUENT CARE VISIT 12/08/2019 12:00:00 AM EDT eCW1 ([facility]) Psychiatric Diagnostic Evaluation 10/17/2019 12:00:00 AM EDT MEDENT ([facility]) Results ID Date Data Source GROUP B STREP CULTURE 05/17/2020 11:09:22 AM EDT eCW1 ([facility]) Name Value Range Interpretation Code Description Data Venessa rce(s) Supporting Document(s) GROUP B STREP CULTURE eCW1 ([facility]) ID Date Data Source WWBC OBS COMPLETE US 02/08/2020 10:19:07 AM EDT eCW1 ([facility]) Name Value Range Interpretation Code Description Data Venessa rce(s) Supporting Document(s) WWBC OBS COMPLETE US eCW1 ([facility]) Procedure Social History Code Duration Value Status Description Data Source(s ) Smoking 08/06/2020 12:00:00 AM EST Never Smoker completed Never S moker eCW1 ([facility]) Smoking 05/30/2020 12:00:00 AM EST Never Smoker completed Never S moker eCW1 ([facility]) Smoking 05/30/2020 12:00:00 AM EST Never Smoker completed Never S moker eCW1 ([facility]) Smoking 05/30/2020 12:00:00 AM EST Never Smoker completed Never S moker eCW1 ([facility]) Smoking 05/30/2020 12:00:00 AM EST Never Smoker completed Never S moker eCW1 ([facility]) Smoking 05/30/2020 12:00:00 AM EST Never Smoker completed Never S moker eCW1 ([facility]) Smoking 05/25/2020 12:00:00 AM EDT Never Smoker completed Never S moker eCW1 ([facility]) Smoking 05/15/2020 12:00:00 AM EDT Never Smoker completed Never S moker eCW1 ([facility]) Smoking 05/01/2020 12:00:00 AM EDT Never Smoker completed Never S moker eCW1 ([facility]) Smoking 01/31/2020 12:00:00 AM EDT Current Smoker completed Curre nt Smoker eCW1 ([facility]) Vital Signs ID Date Data Source UNK Name Value Range Interpretation Code Description Data Source(s) Diastolic blood pressure 60 mm[Hg] 60 mm[Hg] W1 ([facility]) Systolic blood pressure 122 mm[Hg] 122 mm[Hg] e CW1 ([facility]) Body mass index (BMI) [Ratio] 27.27 kg/m2 27.27 kg/m2 W1 ([facility]) Body height 66 [in_i] 66 [in_i] W1 ([facility]) Body weight 169 [lb_av] 169 [lb_av] W1 ([facility]) Diastolic blood pressure 68 mm[Hg] 68 mm[Hg] W1 ([facility]) Systolic blood pressure 126 mm[Hg] 126 mm[Hg] e CW1 ([facility]) Body mass index (BMI) [Ratio] 27.116 kg/m2 27.1 16 kg/m2 [facility] ([facility]) Body height 66 [in_i] 66 [in_i] eCW1 ([facility]) Body weight 168 [lb_av] 168 [lb_av] eCW1 ([facility]) Diastolic blood pressure 70 mm[Hg] 70 mm[Hg] eCW1 ([facility]) Systolic blood pressure 114 mm[Hg] 114 mm[Hg] e CW1 ([facility]) Body mass index (BMI) [Ratio] 27.213 kg/m2 27.2 13 kg/m2 eCW1 ([facility]) Body height 66 [in_i] 66 [in_i] eCW1 ([facility]) Body weight 168.6 [lb_av] 168.6 [lb_av] eCW1 ([facility]) Diastolic blood pressure 80 mm[Hg] 80 mm[Hg] eCW1 ([facility]) Systolic blood pressure 100 mm[Hg] 100 mm[Hg] e CW1 ([facility]) Body mass index (BMI) [Ratio] 26.567 kg/m2 26.5 67 kg/m2 eCW1 ([facility]) Body height 66 [in_i] 66 [in_i] eCW1 ([facility]) Body weight 74.66 kg 74.66 kg eCW1 ([facility]) Body weight 164.6 [lb_av] 164.6 [lb_av] eCW1 ([facility]) Diastolic blood pressure 70 mm[Hg] 70 mm[Hg] eCW1 ([facility]) Systolic blood pressure 122 mm[Hg] 122 mm[Hg] e CW1 ([facility]) Body mass index (BMI) [Ratio] 26.47 kg/m2 26.47 kg/m2 eCW1 ([facility]) Body height 66 [in_i] 66 [in_i] eCW1 ([facility]) Body weight 164 [lb_av] 164 [lb_av] eCW1 ([facility]) Diastolic blood pressure 53 mm[Hg] 53 mm[Hg] eCW1 ([facility]) Systolic blood pressure 113 mm[Hg] 113 mm[Hg] e CW1 ([facility]) Body temperature 98.6 [degF] 98.6 [degF] eCW1 ( [facility]) Respiratory rate 17 /min 17 /min eCW1 ([facility]) Heart rate 91 /min 91 /min eCW1 ([facility]) Body mass index (BMI) [Ratio] 26.63 kg/m2 26.63 kg/m2 eCW1 ([facility]) Body height 66 [in_i] 66 [in_i] eCW1 ([facility]) Body weight 165 [lb_av] 165 [lb_av] eCW1 ([facility]) Diastolic blood pressure 80 mm[Hg] 80 mm[Hg] eCW1 ([facility]) Systolic blood pressure 136 mm[Hg] 136 mm[Hg] e CW1 ([facility]) Body mass index (BMI) [Ratio] 23.34 kg/m2 23.34 kg/m2 eCW1 ([facility]) Body height 66 [in_i] 66 [in_i] eCW1 ([facility]) Body weight 144.6 [lb_av] 144.6 [lb_av] eCW1 ([facility]) Diastolic blood pressure 68 mm[Hg] 68 mm[Hg] eCW1 ([facility]) Systolic blood pressure 122 mm[Hg] 122 mm[Hg] e CW1 ([facility]) Body mass index (BMI) [Ratio] 22.758 kg/m2 22.7 58 kg/m2 eCW1 ([facility]) Body height 66 [in_i] 66 [in_i] eCW1 ([facility]) Body weight 141 [lb_av] 141 [lb_av] eCW1 ([facility]) Diastolic blood pressure 80 mm[Hg] 80 mm[Hg] eCW1 ([facility]) Systolic blood pressure 112 mm[Hg] 112 mm[Hg] e CW1 ([facility]) Body mass index (BMI) [Ratio] 22.274 kg/m2 22.2 74 kg/m2 eCW1 ([facility]) Body height 66 [in_us] 66 [in_us] eCW1 ([facility]) Body weight Measured 138 [lb_av] 138 [lb_av] eC W1 ([facility]) Patient Treatment Plan of Care Planned Activity Planned Date Details Description Data Source (s) Dicloxacillin 500 MG Oral Capsule 08/03/2020 12:00:00 AM EST eCW1 ([facility]) Ondansetron 4 MG Disintegrating Oral Tablet 10/27/2019 12:00:00 AM EDT eCW1 ([facility])
[2020-09-11] MEDS ORDERED: ISOVUE-370 76% 100ML VIAL As Ordered ONE (05:04)
[2020-09-11 05:05] LABS: ALT/SGPT 62 U/L (12-78); BILIRUBIN,DIRECT < 0.1 MG/DL (0.0-0.2); BILIRUBIN,TOTAL 0.3 MG/DL (0.2-1.0); LIPASE 94 U/L (73-393); TOTAL PROTEIN 7.7 GM/DL (6.4-8.2)
--- NOTE | 2020-09-11 05:57 | REPVR ---
PROCEDURE INFORMATION: Exam: CT Abdomen And Pelvis With Contrast Exam date and time: 09/11/2020 5:26 AM Age: 20 years old Clinical indication: Abdominal pain; Localized; Right lower quadrant (rlq); Additional info: Rlq abd pain TECHNIQUE: Imaging protocol: Computed tomography of the abdomen and pelvis with contrast. Radiation optimization: All CT scans at this facility use at least one of these dose optimization techniques: automated exposure control; mA and/or kV adjustment per patient size (includes targeted exams where dose is matched to clinical indication); or iterative reconstruction. Contrast material: ISOVUE 370; Contrast volume: 100 ml; Contrast route: INTRAVENOUS (IV); COMPARISON: RENAL US 03/01/2020 2:58 PM FINDINGS: Liver: Hepatomegaly and steatosis. Gallbladder and bile ducts: Normal. No calcified stones. No ductal dilation. Pancreas: Normal. No ductal dilation. Spleen: Normal. No splenomegaly. Adrenal glands: Normal. No mass. Kidneys and ureters: Normal. No hydronephrosis. Stomach and bowel: Mildly distended fluid and gas filled colon. Suspect diarrhea. Appendix: No evidence of appendicitis. Intraperitoneal space: Trace free fluid in the pelvis. Vasculature: Unremarkable. No abdominal aortic aneurysm. Lymph nodes: Unremarkable. No enlarged lymph nodes. Urinary bladder: Mild thickening of the urinary bladder wall with stranding of the perivesical fat. Cystitis is a consideration. Correlate clinically. Reproductive: Unremarkable as visualized. Bones/joints: Unremarkable. No acute fracture. Soft tissues: Unremarkable. IMPRESSION: Mild thickening of the urinary bladder wall with stranding of the perivesical fat. Cystitis is a consideration. Correlate clinically. Mildly distended fluid and gas filled colon. Suspect diarrhea. Mild hepatomegaly and steatosis. Normal appendix. Electronically signed by: Dipak Blair On 09/11/2020 05:57:31 AM
[2020-09-11] MEDS ORDERED: ONDA4TAB6 PO (07:03)
[2020-09-11] MEDS ORDERED: PERC5TAB12 PO (07:03)
[2020-09-11] MEDS ORDERED: PERCOCET 5MG/325MG TAB PO ONE (07:15)
[2020-09-11 07:17] VITALS: BP 90/50
== END 2020-09-11 07:31 | disposition home or self-care (01) ==
LOC: M ED 03:45
DX: K52.9 Noninfective gastroenteritis and colitis, unspecified (principal); Z87.442 Personal history of urinary calculi
CPT/HCPCS: 74177; 80047; 80076; 81001; 83690; 84702; 85025; 93041; 96374; 96375; 99284; J1885; J2405; Q9967

== ENCOUNTER → 2020-11-12 | Outpatient (REF) | payer OTHER ==
[~2020-11-12] MED LIST changes: +ONDA4TAB6 PO; +PERC5TAB12 PO
== END ==
LOC: M SFHCLERA 15:36
PROVIDERS: ATTEND Nurse Practitioner Family
DX: J02.9 Acute pharyngitis, unspecified (principal)

== ENCOUNTER → 2020-11-13 | Outpatient (REF) | payer OTHER | LOC: M SFHCLERA 15:45 | PROVIDERS: ATTEND Nurse Practitioner Family | DX: J06.9 Acute upper respiratory infection, unspecified (principal) ==